=== PATIENT | female | born 1990 | race Caucasian/White ===

== ENCOUNTER 2016-11-04 23:36 | Emergency (ER) | payer MEDICAID ==
[~2016-11-04] VITALS: Ht 162.6 cm; Wt 70.0 kg
[~2016-11-04 23:36] MED LIST: CALC600T5 PO; FERR240T9 PO; PRENAT PO
[2016-11-04 23:46] VITALS: Ht 162.6 cm; Wt 70.0 kg
[2016-11-05] MEDS ORDERED: ONDANSETRON (ODT) 4 MG TAB ODT STA (02:24)
[2016-11-05] MEDS ORDERED: LOPE2CAP PO (03:04)
[2016-11-05] MEDS ORDERED: ONDA4TAB8 PO (03:04)
--- NOTE | 2016-11-05 03:08 | ERD ---
ER Documentation Chief Complaint Date/Time DATE: 11/05/16 TIME: 03:06 Chief Complaint n/v with diarrhea for past 2 days HPI This is a 26-year-old female who presents to the emergency department today complaining of nausea vomiting and diarrhea that started 2 days ago. She has not taken any medication for the pain. Denies any fevers or chills abdominal pain. ROS All systems reviewed and are negative except as per history of present illness. Medications Home Meds Active Scripts Loperamide Hcl* (Imodium*) 2 Mg Capsule, 2 MG PO .AFTER EA LOOSE BM Y for DIARRHEA, #10 TAB Prov:RADHA SRIVASTAVA PA-C 11/05/16 Ondansetron Hcl* (Zofran*) 4 Mg Tablet, 4 MG PO Q6H for NAUSEA AND/OR VOMITING, #30 TAB Prov:RADHA SRIVASTAVA PA-C 11/05/16 Reported Medications Calcium Carbonate (CALCIUM) 600 Mg Tablet, 600 MG PO 08/24/15 Ferrous Gluconate (Iron) 1 Tab Tablet, 1 TAB PO 08/24/15 Multivit/Min/Fol Ac/Iron/Pren* ( S*) 1 Tab Tab, 1 TAB PO DAILY, TAB 08/24/15 Allergies Allergies: Coded Allergies: No Known Allergy (Verified , 08/24/15) PMhx/Soc History of Surgery: No Anesthesia Reaction: No Hx Neurological Disorder: No Hx Respiratory Disorders: No Hx Cardiac Disorders: No Hx Psychiatric Problems: No Hx Miscellaneous Medical Probl: No Hx Alcohol Use: No Hx Substance Use: No Hx Tobacco Use: No Physical Exam Vitals Vital Signs Date Time Temp Pulse Resp B/P Pulse Ox O2 Delivery O2 Flow Rate FiO2 11/04/16 23:46 97.9 88 18 134/72 99 Physical Exam Const: Nontoxic appearing, no acute distress Head: Atraumatic Eyes: Normal Conjunctiva ENT: Normal External Ears, Nose and Mouth. Neck: Full range of motion..~ No meningismus. Resp: Clear to auscultation bilaterally Cardio: Regular rate and rhythm, no murmurs Abd: Soft, non tender, non distended. Normal bowel sounds. No Right lower quadrant pain. No left lower quadrant pain. Skin: No petechiae or rashes Back: No midline or flank tenderness Ext: No cyanosis, or edema Neur: Awake and alert Psych: Normal Mood and Affect Results 24 hrs Current Medications Medications (Trade) Dose Ordered Sig/Walt Route PRN Reason Start Time Stop Time Status Last Admin Dose Admin Ondansetron HCl (Zofran Odt) 4 mg ONCE STAT ODT 11/05/16 02:24 11/05/16 02:25 DC 11/05/16 02:36 Procedures/MDM This is a 26-year-old female who presents to the emergency department today complaining of nausea vomiting and diarrhea that started yesterday. On physical exam patient has no abdominal pain. She is afebrile and otherwise well- appearing. I do not feel the patient requires laboratory work or imaging at this time. Low suspicion for any acute surgical abdomen. Low suspicion for diverticulitis. Patient's symptoms at this time consistent with nausea vomiting and diarrhea possibly viral in nature. Patient was given Zofran here in the emergency department. I'll give her a prescription for Zofran and Imodium for home. Patient was instructed to return for any worsening of symptoms, fevers or abdominal pain. Patient understood. At this time the patient is stable for discharge and outpatient management. Patient should follow up with their PCP in the next 1-2 days. They may return to the emergency department sooner for any persistent or worsening of symptoms. Patient understood and agreed with the plan. Departure Diagnosis: Primary Impression: Nausea vomiting and diarrhea Condition: Fair Patient Instructions: Vomiting And Diarrhea, Nonspecific (Adult) Referrals: [facility] YOU HAVE RECEIVED A MEDICAL SCREENING EXAM AND THE RESULTS INDICATE THAT YOU DO NOT HAVE A CONDITION THAT REQUIRES URGENT TREATMENT IN THE EMERGENCY DEPARTMENT. FURTHER EVALUATION AND TREATMENT OF YOUR CONDITION CAN WAIT UNTIL YOU ARE SEEN IN YOUR DOCTORS OFFICE WITHIN THE NEXT 1-2 DAYS. IT IS YOUR RESPONSIBILITY TO MAKE AN APPOINTMENT FOR FOLOW-UP CARE. IF YOU HAVE A PRIMARY DOCTOR --you should call your primary doctor and schedule an appointment IF YOU DO NOT HAVE A PRIMARY DOCTOR YOU CAN CALL OUR PHYSICIAN REFERRAL HOTLINE AT IF YOU CAN NOT AFFORD TO SEE A PHYSICIAN YOU CAN CHOSE FROM THE FOLLOWING [facility] [address] [facility] [address] [facility] [facility] [address] [facility] [address] [facility] [facility] [address] [facility]. [facility]. [address] [facility]. [facility] () Usjacki se romo hecho un examen mdico de control que le indica que no est en nestor condicin que requiera tratamiento urgente en el Departamento de Emergencia. Un estudio ms profundo y el tratamiento de jaffe condicin pueden esperar sin ningn riesgo hasta que usted sea atendida/o en el consultorio de jaffe mdico o nestor cl leslie. Es responsabilidad suya arreglar nestor benji para el seguimiento del any. MANEJO DE CONDICIONES NO URGENTES EN EL FUTURO 1) Si usted tiene un mdico de atencin primaria: Usted debera llamar a jaffe mdico de atencin primaria antes de venir al departamento de emergencia. Despus de las horas de consultorio, ajffe doctor o jaffe asociado/a est disponible por telfono. El mdico o enfermero de beny en el servicio telefnico puede asesorarle por cheri medio para atender el problema, o any contrario se puede programar nestor benji. 2) Si usted no tiene un mdico de atencin primaria: Llame al mdico o condado institucions de referencia que aparece abajo clay las horas de consultorio para hacer nestor benji para que le vean. SI USTED NO PUEDE PAGAR PARA SOFY UN MEDICO puede ir a: [facility] [address] [place] [address] [facility] [address] [place] [address] [facility] [address] [place] [address] [address] [facility] [address] [address] Additional Instructions: Call your primary care doctor TOMORROW for an appointment during the next 1-2 days.See the doctor sooner or return here if your condition worsens before your appointment time. Zofran for nausea and diarrhea Immodium for diarrhea RADHA SRIVASTAVA PA-C Nov 05, 2016 03:08
[2016-11-05 03:15] VITALS: BP 114/57; PULSE 72; RESP 17; TEMP 98.5
== END 2016-11-05 03:15 | disposition home or self-care (01) ==
LOC: FTE 23:36
DX: R11.2 Nausea with vomiting, unspecified (principal); R19.7 Diarrhea, unspecified
CPT/HCPCS: Z7502; Z7610; 99283